=== PATIENT | female | born 1990 | race Caucasian/White ===

== ENCOUNTER 2018-06-24 01:41 | Inpatient (IN) | payer MEDICAID ==
[2018-06-24] MEDS ORDERED: NACL 0.9% 1000 ML IV ONE (02:13)
[2018-06-24] MEDS ORDERED: NACL 0.9% 1000 ML 1,000 ML ONE ×2 (02:14→05:02)
[2018-06-24] MEDS ORDERED: TORADOL IV ONE (02:15)
[2018-06-24] MEDS ORDERED: ZOFRAN IV ONE (02:15)
--- NOTE | 2018-06-24 02:24 | Emergency Department Report ---
ED Abdominal Pain HPI - General Chief Complaint: Abdominal Pain Stated Complaint: AMS Time Seen by Provider: 06/24/18 02:00 Source: patient, EMS Mode of arrival: Stretcher Limitations: No Limitations - History of Present Illness Initial Comments: 27-year-old female with left lower quadrant abdominal pain times one day. Patient presents by EMS. Patient states she believes her neighbor called 911 because she was unresponsive. When EMS arrived patient's glucose was low at 52, so D50 was given, the patient then became responsive. Patient is not diabetic, however reports that her blood sugars drop before in the past. The patient underwent gastric sleeve surgery in December 2017. Patient denies nausea, vomiting, diarrhea, vaginal bleeding, vaginal discharge, urinary frequency, dysuria. Patient does report fever and chills, temp of 102 with EMS. MD Complaint: abdominal pain -: days(s) (1) Location: LLQ Radiation: none Migration to: no migration Severity: severe Severity scale (0 -10): 10 Quality: sharp Consistency: constant Improves With: nothing Worsens With: nothing Associated Symptoms: fever, chills. denies: nausea, vomiting, diarrhea, dysuria, hematuria - Related Data Allergies Allergy/AdvReac Type Severity Reaction Status Date / Time Penicillins Allergy Unknown Verified 06/24/18 02:32 ED Review of Systems ROS: Stated complaint: AMS Other details as noted in HPI Comment: All other systems reviewed and negative Constitutional: chills, fever Respiratory: denies: cough Gastrointestinal: abdominal pain. denies: nausea, vomiting, diarrhea Genitourinary: denies: dysuria, frequency, discharge ED Past Medical Hx - Past Medical History Previous Medical History?: Yes Hx Diabetes: Yes Hx Asthma: Yes - Surgical History Past Surgical History?: Yes Additional Surgical History: Gastric Sleeve in 02/16/2018 - Social History Smoking Status: Never Smoker Substance Use Type: Prescribed ED Physical Exam - General Limitations: No Limitations General appearance: alert, in no apparent distress - Head Head exam: Present: atraumatic, normocephalic - Eye Eye exam: Present: normal appearance - ENT ENT exam: Present: mucous membranes moist - Neck Neck exam: Present: normal inspection - Respiratory Respiratory exam: Present: normal lung sounds bilaterally. Absent: respiratory distress - Cardiovascular Cardiovascular Exam: Present: normal rhythm, tachycardia - GI/Abdominal GI/Abdominal exam: Present: soft, tenderness (moderate LLQ tenderness). Absent: distended - External exam: Present: normal external exam Speculum exam: Present: normal speculum exam. Absent: vaginal discharge, cervical discharge, vaginal bleeding Bi-manual exam: Present: normal bi-manual exam. Absent: cervical motion tendernes, adnexal tenderness, uterine tenderness - Extremities Exam Extremities exam: Present: normal inspection - Neurological Exam Neurological exam: Present: alert, oriented X3, CN II-XII intact. Absent: motor sensory deficit - Psychiatric Psychiatric exam: Present: normal affect, normal mood - Skin Skin exam: Present: warm, dry, intact, normal color. Absent: rash ED Course Vital Signs 06/24/18 06/24/18 06/24/18 01:55 02:00 02:15 Temperature 98.5 F Pulse Rate 112 H 110 H 103 H Respiratory 24 24 25 H Rate Blood Pressure 111/55 87/44 98/59 Blood Pressure 111/55 [Right] O2 Sat by Pulse 99 98 97 Oximetry 06/24/18 06/24/18 06/24/18 02:31 02:45 02:58 Temperature Pulse Rate 101 H 104 H Respiratory 19 23 29 H Rate Blood Pressure 98/59 98/59 Blood Pressure [Right] O2 Sat by Pulse 98 98 Oximetry 06/24/18 06/24/18 06/24/18 03:00 03:17 03:30 Temperature Pulse Rate 102 H 98 H Respiratory 21 20 20 Rate Blood Pressure 102/54 89/36 Blood Pressure [Right] O2 Sat by Pulse 98 98 Oximetry 06/24/18 06/24/18 06/24/18 04:15 04:17 04:30 Temperature Pulse Rate 92 H 90 Respiratory 19 18 18 Rate Blood Pressure 65/33 77/40 Blood Pressure [Right] O2 Sat by Pulse 97 100 Oximetry 06/24/18 06/24/18 06/24/18 04:45 05:00 05:15 Temperature Pulse Rate 85 88 83 Respiratory 15 16 15 Rate Blood Pressure 91/49 96/51 83/43 Blood Pressure [Right] O2 Sat by Pulse 100 100 99 Oximetry ED Medical Decision Making - Lab Data Result diagrams: 06/24/18 02:24 06/24/18 02:24 - Radiology Data Radiology results: report reviewed, image reviewed - Medical Decision Making 27-year-old female presents with fever, abdominal pain, hypoglycemia. The patient is not febrile here in ED, however patient reports fever and chills at home. Patient hypotensive her in ED. Has left lower quadrant tenderness on exam. Pelvic exam is unremarkable, no discharge, CMT, or adnexal tenderness. Labs unremarkable, except for mildly elevated lactic acid of 2.2. CT abdomen and pelvis was obtained which was grossly unremarkable, no source for patient's left lower quadrant pain. IV fluid bolus was given, along with empiric antibiotics for abdominal pathology. Repeat lactic acid improved to 1.1. Vital signs also improved, HR in the 80s. SBP in the 90s. Will admit to hospitalist, Dr Valdez, for further management. - Differential Diagnosis diverticulitis, pyelonephritis, UTI, PID, TOA, ectopic Critical Care Time: Yes Critical care time in (mins) excluding proc time.: 35 Critical care attestation.: If time is entered above; I have spent that time in minutes in the direct care of this critically ill patient, excluding procedure time. Critical Care Time: 35 minutes ED Disposition Clinical Impression: Sepsis, Abdominal pain Disposition: OP ADMIT IP TO THIS HOSP Is pt being admited?: Yes Condition: Stable Instructions: Abdominal Pain (ED) Referrals: KAIDEN KOCH MD [Primary Care Provider] - 3-5 Days Time of Disposition: 05:19
[2018-06-24 02:48] LABS: Basophils % (Auto) 0.2 % (0.0-1.8); Eosinophils % (Auto) 0.2 % (0.0-4.3); Hematocrit 34.6 % (30.3-42.9); Hemoglobin 11.6 gm/dl (10.1-14.3); Lymphocytes # (Auto) 0.3 K/mm3 (1.2-5.4); Lymphocytes % (Auto) 4.9 % (13.4-35.0); Mean Corpuscular HGB Conc 33 % (30-34); Mean Corpuscular Volume 90 fl (79-97); Monocytes # (Auto) 0.3 K/mm3 (0.0-0.8); Monocytes % (Auto) 5.3 % (0.0-7.3); Platelet Count 147 K/mm3 (140-440); Red Blood Count 3.84 M/mm3 (3.65-5.03); Red Cell Distribution Width 13.3 % (13.2-15.2)
[2018-06-24] MEDS ORDERED: TYLENOL PO ONE (03:12)
[2018-06-24 03:18] LABS: Alanine Aminotransferase 11 units/L (7-56); Albumin 3.4 g/dL (3.9-5); BUN/Creatinine Ratio 10; Blood Urea Nitrogen 7 mg/dL (7-17); Calcium 8.1 mg/dL (8.4-10.2); Hemolysis Index 49
[2018-06-24 03:20] LABS: Bilirubin,Urine NEG (Negative); Blood,Urine NEG (Negative); Color,Urine Yellow (Yellow); Mucus,Urine 1+ /HPF
[2018-06-24] MEDS ORDERED: FLAGYL 500 MG/100 ML 500 MG/100 ML BAG IV ONE (03:26)
--- NOTE | 2018-06-24 04:27 | Cat Scan Report ---
PROCEDURE: CT ABDOMEN PELVIS W CON TECHNIQUE: Routine axial imaging was obtained of the abdomen and pelvis following the intravenous in jection of iodinated contrast. Delayed imaging was obtained through the kidneys ureters and bladder. Sagittal and coronal reconstructions were reviewed. HISTORY: LLQ pain COMPARISONS: None FINDINGS: The lung bases are negative infiltrates or effusions. There are surgical sutures in the upper abdomen related to previous gastric bypass surgery. The liver , pancreas, spleen and adrenal glands appear normal. The gallbladder has been removed. The kidneys en tien normally. There is no evidence of hydronephrosis. The abdominal aorta is normal in size. The po rtal vein enhances normally. The bowel loops are normal in caliber and course. The appendix is not seen with certainty. No definit e inflammatory process is seen in the right lower quadrant. In the pelvis the uterus and bladder appe ar normal. There are small functional cysts in the left ovary measuring 2 cm in diameter. There is no evidence of free fluid. There are multiple small benign lymph nodes within the mesentery. The skelet al structures do not show any acute changes. IMPRESSION: Multiple small functional cysts in the left ovary measuring 2 cm in diameter. No evidence of free flu id.. Appendix not identified. No evidence of any inflammatory process in the right lower quadrant. Multiple small benign appearing lymph nodes noted throughout the mesentery. This document is electronically signed by Blaine Maxwell MD., June 24 2018 04:24:44 AM ET
[2018-06-24] MEDS ORDERED: NACL 0.9% 250ML 250 ML ONE (04:38)
[2018-06-24] MEDS ORDERED: AZACTAM/NS 1 GM/50 ML 1 GM/50 ML VIAL IV ONE (04:42)
--- NOTE | 2018-06-24 05:00 | XRay Report ---
PROCEDURE: XR CHEST 1V AP TECHNIQUE: A portable upright view of the chest was made. HISTORY: fever COMPARISONS: None FINDINGS: The lungs are clear. Pleural fluid is not seen. The heart size is normal. The bones and soft tissues appear normal. IMPRESSION: Normal exam.. This document is electronically signed by Blaine Maxwell MD., June 24 2018 04:58:31 AM ET
[2018-06-24] MEDS ORDERED: NACL 0.9% 1000 ML 1,000 ML IV ONE ×3 (05:18→05:59)
[2018-06-24] MEDS ORDERED: TYLENOL PO PRN (05:52)
[2018-06-24] MEDS ORDERED: ZOFRAN IV PRN (05:52)
[2018-06-24] MEDS ORDERED: SODIUM CHLORIDE FLUSH SYRINGE 10 ML IV PRN (05:52)
[2018-06-24] MEDS ORDERED: PERCOCET 5/325 PO PRN (05:52)
--- NOTE | 2018-06-24 05:57 | History and Physical Report ---
History of Present Illness Date of examination: 06/24/18 History of present illness: 27-year-old woman with no medical problems comes emergency room because the neighbor found her at home unresponsive. EMS checked her blood sugar which was low, she was given D50 with good response. She complains of abdominal pain star ronnie 2 days ago, left lower quadrant, sharp, constant, intensity 6/10, no radiation, cannot identify exacerbating factors. States she had a few episodes of hypoglycemic episodes in the last month, she saw a physician who recommended frequent meals. Admits to fever. She was hypotensive in the emergency room to which she responded to IV fluids. Review of systems Constitutional: no weight loss, chills Ears, eyes, nose, mouth and throat: no nasal congestion, no nasal discharge, no sinus pressure, no vision change, no red eye. Neck: No neck pain or rigidity. Cardiovascular: no palpitations, chest pain Respiratory: no cough, shortness of breath Gastrointestinal: no hematochezia, abdominal pain Genitourinary : no frequency , no hematuria Musculoskeletal: no joint swelling or muscle ache Integumentary: no rash, no pruritis Neurological: no parathesias, no focal weakness Endocrine: no cold or heat intolerance, no polyuria or polydipsia Hematologic/Lymphatic: no easy bruising, no easy bleeding, no gland swelling Allergic/Immunologic: no urticaria, no angioedema. PAST MEDICAL HISTORY: None PAST SURGICAL HISTORY: None SOCIAL HISTORY: Denies alcohol, drugs, tobacco FAMILY HISTORY: Hypertension Medications and Allergies Allergies Allergy/AdvReac Type Severity Reaction Status Date / Time Penicillins Allergy Unknown Verified 06/24/18 02:32 Active Meds: Active Medications Sodium Chloride (Nacl 0.9% 1000 Ml) 1,000 mls @ 999 mls/hr IV BOLUS ONE Stop: 06/24/18 06:18 Last Admin: 06/24/18 05:15 Dose: 999 mls/hr Documented by: Sodium Chloride (Nacl 0.9% 1000 Ml) 1,000 mls @ 999 mls/hr IV BOLUS ONE Stop: 06/24/18 06:49 Last Admin: 06/24/18 05:50 Dose: 999 mls/hr Documented by: Exam - Physical Exam Narrative exam: General Apperance: The patient lying in bed, breathing comfortable HEENT: Normocephalic, atraumatic. Pupils equally round and reactive to light, EOMI, no sclericterus or JVD or thyromegaly or nodule. , no carotid bruit, mucous membranes moist, no exudate or erythema Heart: S1-S2, regular is rhythm Lungs: Clear to auscultation bilaterally, breathing comfortable Abdomen: Positive bowel sounds, soft, nontender, nondistended, no organomegaly Extremities: No edema cyanosis clubbing Skin: no rash, nodule, warm and dry Neuro: cranial nerves 2-12 intact, speech is fluent, motor/sensory intact - Constitutional Vitals: Temp Pulse Resp BP Pulse Ox 98.5 F 83 15 83/43 99 06/24/18 01:55 06/24/18 05:15 06/24/18 05:15 06/24/18 05:15 06/24/18 05:15 Results - Labs CBC & Chem 7: 06/24/18 02:24 06/24/18 02:24 Labs: Abnormal lab results 06/24/18 06/24/18 06/24/18 Range/Units 02:05 02:24 02:24 Lymph % (Auto) 4.9 L (13.4-35.0) % Lymph # 0.3 L (1.2-5.4) K/mm3 Seg Neutrophils % 89.4 H (40.0-70.0) % Sodium 135 L (137-145) mmol/L Potassium 3.3 L (3.6-5.0) mmol/L Carbon Dioxide 19 L (22-30) mmol/L Glucose 121 H (65-100) mg/dL POC Glucose 140 H (70-105) Lactic Acid (0.7-2.0) mmol/L Calcium 8.1 L (8.4-10.2) mg/dL Albumin 3.4 L (3.9-5) g/dL 06/24/18 Range/Units 02:24 Lymph % (Auto) (13.4-35.0) % Lymph # (1.2-5.4) K/mm3 Seg Neutrophils % (40.0-70.0) % Sodium (137-145) mmol/L Potassium (3.6-5.0) mmol/L Carbon Dioxide (22-30) mmol/L Glucose (65-100) mg/dL POC Glucose (70-105) Lactic Acid 2.20 H* (0.7-2.0) mmol/L Calcium (8.4-10.2) mg/dL Albumin (3.9-5) g/dL - Imaging and Cardiology Chest x-ray: report reviewed CT scan - abdomen: report reviewed CT scan - pelvis: report reviewed Assessment and Plan Assessment SIRS Hypotension Abdominal pain Hypokalemia Plan Admit medicine Give IV fluid bolus, started continue fluids continue aztreonam, consult infectious disease Percocet for pain, replete potassium DVT prophylaxis Addendum Case discussed with Dr. Brooks from infectious disease A recommend cefepime antibiotic, flu swab
[2018-06-24] MEDS ORDERED: NACL 0.9% 1000 ML 1,000 ML IV SCH (06:00)
[2018-06-24] MEDS ORDERED: AZACTAM/NS 1 GM/50 ML 1 GM/50 ML VIAL IV SCH ×2 (06:00→14:00)
[2018-06-24] MEDS ORDERED: K-DUR PO ONE (06:42)
[2018-06-24 07:20] VITALS: BP 102/51
[2018-06-24] MEDS ORDERED: MAXIPIME/NS 1 GM/100 ML 1 GM/100 ML BAG IV SCH (10:00)
[2018-06-24] MEDS ORDERED: SODIUM CHLORIDE FLUSH SYRINGE 10 ML IV SCH (10:00)
[2018-06-24] MEDS ORDERED: LOVENOX SUB-Q SCH ×2 (10:00)
--- NOTE | 2018-06-24 10:58 | Event Note ---
Date: 06/24/18 Left AMA, prior to being evaluated by me
== END 2018-06-24 08:50 | disposition left against medical advice (07) | DRG 315 ==
LOC: ED 01:41 → SUATTDRO 01:41 → 3A 05:52
PROVIDERS: ADMIT Internal Medicine; ATTEND Internal Medicine
DX: I95.9 Hypotension, unspecified (principal); R65.10 Systemic inflammatory response syndrome (SIRS) of non-infectious origin without acute organ dysfunction; R10.9 Unspecified abdominal pain; E87.6 Hypokalemia; J45.909 Unspecified asthma, uncomplicated; E11.649 Type 2 diabetes mellitus with hypoglycemia without coma; Z82.49 Family history of ischemic heart disease and other diseases of the circulatory system; Z88.0 Allergy status to penicillin; Z98.84 Bariatric surgery status
CPT/HCPCS: 36415; 71045; 74177; 80053; 81001; 82140; 82962; 84702; 85025; 85730; 87040; 87086; 87210; 87591; 96361; 96365; 96375; G0378; J1885; J2405; J7030; J7050; Q9967